=== PATIENT | male | born 1945 | race American Indian/Alaskan Native ===

== ENCOUNTER 2017-10-19 14:33 | Outpatient (CLI) | payer MEDICARE ==
--- NOTE | 2017-10-19 15:34 | XRay Report ---
Standing right knee: Pain. There is marked narrowing of the lateral joint compartment with lateral articular spurs. Peripheral spurs are likewise identified involving the medial compartment. The articular surfaces appear preserved. Attachment spurs are identified at the superior and inferior patella margins. The knee appears generally aligned. The bones are well-mineralized. There is no effusion and no soft tissue swelling. 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
== END 2017-10-19 14:34 | disposition home or self-care (01) ==
LOC: SPVIMAG 14:33
PROVIDERS: ATTEND Orthopaedic Surgery Sports Medicine
DX: M17.11 Unilateral primary osteoarthritis, right knee (principal); M25.861 Other specified joint disorders, right knee